=== PATIENT | female | born 1955 | race Caucasian/White ===

== ENCOUNTER 2020-08-03 00:18 | Outpatient (CLI) | payer OTHER, SELFPAY ==
[2020-08-03 17:34] LABS: SARS-CoV-2 RNA PCR Negative
== END 2020-08-03 00:19 | disposition home or self-care (01) ==
LOC: ANHCOVIDDT 00:18
PROVIDERS: PCP Family Medicine; Visit Provider Plastic Surgery
DX: Z01.812 Encounter for preprocedural laboratory examination (principal); Z20.822 Contact with and (suspected) exposure to COVID-19
CPT/HCPCS: C9803; U0003; U0005

== ENCOUNTER 2020-08-04 13:05 | Outpatient (CLI) | payer OTHER, SELFPAY ==
--- NOTE | 2020-08-04 13:09 | ECG_ITS ---
Measurements Intervals [place] Rate: 65 P: 70 [place]: 181 QRS: -26 QRSD: 87 T: 9 QT: 418 QTc: 435 Interpretive Statements SINUS RHYTHM LOW QRS VOLTAGE IN PRECORDIAL LEADS VOLTAGE CRITERIA FOR LVH BORDERLINE T WAVE ABNORMALITY- INFERIOR LEADS BORDERLINE ECG Electronically Signed On 08-04-2020 13:37:41 FURNITURE MAKER by Cem Albert D.O.
== END 2020-08-04 13:06 | disposition home or self-care (01) ==
LOC: ANHSURGERY 13:09
PROVIDERS: PCP Family Medicine; Visit Provider Plastic Surgery
DX: Z01.818 Encounter for other preprocedural examination (principal); I10 Essential (primary) hypertension; R94.31 Abnormal electrocardiogram [ECG] [EKG]
CPT/HCPCS: 93005

== ENCOUNTER 2020-08-06 00:30 | Day surgery (SDC) | payer OTHER, SELFPAY ==
[2020-08-03 12:58] VITALS: BMI 35.6
--- NOTE | 2020-08-06 07:07 | WPDHPUPDATE1 ---
History and Physical Update Update Date/Time: 08/06/20 07:07 History and Physical has been reviewed, including an updated exam of the patient. There are NO changes in the patient's condition. Risks, benefits, and alternatives have been discussed and questions answered. Patient agrees to proceed with procedure.
[2020-08-06 08:00] VITALS: BP 152/91; PULSE 55; RESP 20; TEMP 36.7; O2SAT 100
[2020-08-06] MEDS: LACTATED RINGERS 1,000 ML 30 ML IV CONT ×2 (09:25→12:31)
[2020-08-06 09:36] LABS: Glucose Point of Care 99 (65-105)
--- NOTE | 2020-08-06 09:43 | WPDANESEPPF ---
Anes - Initial Pre Proc Eval Procedure: Operation Date: 08/06/20 10:00 Proposed Procedures p Excision Of Basal Cell Carcinoma From Right Nasal Sidewall, With Frozen Section And Possible Full Thickness Skin Graft Or Local Tissue Transfer - Miki Echeverria MD Date/Time: 08/06/20 09:43 Surgeon: Miki Echeverria MD Pre Op Diagnosis: Basal Cell Carcinoma Right Nasal Sidewall Patient Data Age: 64 Gender: F Height: 5 ft 4 in Weight: 98.2 kg Last Vital Signs Temp 98.1 F 08/06/20 08:00 Pulse 55 L 08/06/20 08:00 Resp 20 08/06/20 08:00 BP 152/91 H 08/06/20 08:00 Pulse Ox 100 08/06/20 08:00 Allergies Allergy/AdvReac Type Severity Reaction Status Date / Time No Known Allergies Allergy NONE Verified 08/06/20 09:18 Home Medications Medication Instructions Recorded Confirmed Type fluticasone propionate 50 See Rx Instructions .ROUTE 03/10/20 08/03/20 Rx mcg/actuation nasal .COMPLEX #16 ml spray,suspension amlodipine 10 mg tablet 10 mg PO DAILY #90 tablet 04/07/20 08/06/20 Rx metformin 500 mg tablet 500 mg PO BID #180 tablet 04/07/20 08/06/20 Rx metoprolol tartrate 50 mg tablet 25 mg PO BID tablet 07/06/20 08/06/20 History triamterene 37.5 1 tablet PO DAILY #135 tablet 07/06/20 08/06/20 Rx mg-hydrochlorothiazide 25 mg tablet atorvastatin 10 mg tablet 10 mg PO DAILY #90 tablet 07/08/20 08/06/20 Rx alprazolam 0.25 mg tablet 0.25 mg PO BID PRN #60 tablet 07/24/20 08/06/20 Rx ascorbic acid (vitamin C) 500 mg PO DAILY 08/03/20 08/06/20 History biotin 10 mg PO DAILY 08/03/20 08/06/20 History cholecalciferol (vitamin D3) 25 mcg PO DAILY 08/03/20 08/06/20 History cyanocobalamin (vitamin B-12) 1,000 mcg PO DAILY 08/03/20 08/06/20 History ketotifen fumarate [Eye Itch See Rx Instructions .ROUTE 08/03/20 08/06/20 History Relief] .COMPLEX PRN multivitamin-iron (hematinic) 1 tablet PO DAILY 08/03/20 08/06/20 History [Complete Vitamin] turmeric 400 mg PO DAILY 08/03/20 08/06/20 History Laboratory Tests 08/06/20 09:33 POC Capillary Glucose 99 mg/dl mg/dl (65-105) Patient hx anesthesia problems: none Family hx anesthesia problems: none PMF Past Medical History Medical History Dyslipidemia Generalized anxiety disorder Hypertension Prediabetes Sleep apnea Surgical History Surgical History History of foot surgery 2010 - Right foot surgery for excision of neuroma. History of vaginal delivery 1985, 1994 Family History Family History Father Patient's father is Acute myocardial infarction, Onset Age: 53 Asthma, Onset Age: 53 Grandparent Diabetes mellitus Other Hypertension Social History Social History Smoking status: Never smoker Second hand tobacco smoke exposure: No Smoking end date: 07/03/75 Alcohol intake: never Substance use: never Substance use type: does not use Living arrangements: with family Spiritual care concerns: No Anes - Eval Final PreProcedure Day of Procedure 08/06/20 09:43 Patient weight: obese Heart: regular rate and rhythm Lungs: clear to auscultation Airway: Mallampati scale class II Neurological: alert and oriented Last oral intake: >/= 8 hours ASA classification: III Emergent: no Anesthetic plan: proceed Anesthesia type and monitoring: general GIVS and standard monitoring Informed Consent: The patient's anesthetic plan and its attendant risks and benefits were discussed with the patient/family/POA. Questions were solicited and answers provided to the satisfaction of the patient/family/POA.
--- NOTE | 2020-08-06 10:07 | SUR.PREOP ---
0920-PT AWARE SURGEON DELAYS SELF ~30-45 . SHE STATES SHE WILL MAKE STEP DAD AWARE.
[2020-08-06] MEDS: LIDO 1%/EPINEPHRINE 1:100,000 50 ML VIAL INFILTRATE ×2 (10:55→12:07)
[2020-08-06] MEDS: BACITRACIN OINTMENT 15 GM TUBE 1 APPLIC TOPICAL (12:21)
--- NOTE | 2020-08-06 12:22 | SUR.OPER ---
Ebl=5ml
[2020-08-06 12:31] VITALS: BP 125/71; PULSE 57; RESP 14; O2SAT 100
--- NOTE | 2020-08-06 12:36 | P.OP_ITS ---
Procedure Note - Detailed Date of procedure: 08/06/20 Pre-op diagnosis: Basal Cell Carcinoma Right Nasal Sidewall Post-op diagnosis: same Procedure performed: 1.5 cm excision of BCC of right nasal sidewall with FS and LTT 2 sq cm Description of procedure: The tumor site on patient's right nasal sidewall was marked in the holding area. She was taken to the operating room and placed supine on the operating table. Time-out was held and confirmed. She was given IV sedation. The face was prepped and draped in usual fashion. The site was carefully marked for excision. The site was infiltrated with 1% lidocaine with epinephrine. The proposed the tumor margins were excised with 15 blade and the specimen taken off in the subcutaneous tissue a suture marking the superior 12 o'clock position. The pathologist revealed that the entire tumor had been removed. The reconstruction involved local tissue transfer as a V to Y flap from the nasal labial fold. This was incised and elevated to the nasal dorsum with careful preservation of the satisfactory random vascular pedicle. This was inset with 5 0 Vicryl and 6 0 nylon tolerated well. Anesthesia: MAC Surgeon: Miki Echeverria MD Accounts Adjustable Clerk: Babar Estimated blood loss (mL): 5 Drains: No Packing: No Pathology: yes Complications: No immediate complications Condition: stable Disposition: same day
[2020-08-06 12:37] LABS: Glucose Point of Care 104 (65-105)
[2020-08-06 13:00] VITALS: BP 149/76; PULSE 54; RESP 14
[2020-08-06 13:30] VITALS: BP 134/72; PULSE 51; RESP 20
[2020-08-06 14:00] VITALS: BP 141/70; PULSE 54; RESP 20
== END 2020-08-06 14:10 | disposition home or self-care (01) ==
PROVIDERS: PCP Family Medicine; Visit Provider Plastic Surgery
PROC: (CPT 14060; principal; 2020-08-06 10:00)
DX: C44.311 Basal cell carcinoma of skin of nose (principal); I10 Essential (primary) hypertension; E78.5 Hyperlipidemia, unspecified; R73.03 Prediabetes; G47.30 Sleep apnea, unspecified; F41.1 Generalized anxiety disorder; Z79.84 Long term (current) use of oral hypoglycemic drugs; E66.9 Obesity, unspecified; Z68.37 Body mass index [BMI] 37.0-37.9, adult
CPT/HCPCS: 14060; 82948; 88305; 88331; A9270; J2405; J2704; J7120

== ENCOUNTER 2022-11-18 11:17 | Outpatient (CLI) | payer BC, MEDICARE, SELFPAY ==
[2022-11-18 12:07] LABS: Kit Draw Collected
== END 2022-11-18 11:18 | disposition home or self-care (01) ==
LOC: ANHGOSHLAB 11:20
PROVIDERS: PCP Family Medicine; Visit Provider Nurse Practitioner Family
DX: R73.03 Prediabetes (principal); Z13.220 Encounter for screening for lipoid disorders; Z13.29 Encounter for screening for other suspected endocrine disorder; I10 Essential (primary) hypertension; Z13.21 Encounter for screening for nutritional disorder
CPT/HCPCS: 36415

== ENCOUNTER 2023-03-17 08:28 | Emergency (ER) | payer BC, MEDICARE, SELFPAY ==
[2023-03-17 08:41] VITALS: BP 132/84; PULSE 80; RESP 16; TEMP 36.4; O2SAT 100
--- NOTE | 2023-03-17 09:04 | ECG_ITS ---
Measurements Intervals [place] Rate: 91 P: [place]: 0 QRS: -19 QRSD: 89 T: 13 QT: 384 QTc: 473 Interpretive Statements ATRIAL FIBRILLATION ABNORMAL ECG COMPARED TO ECG 08/04/2020 13:43:10 ATRIAL FIBRILLATION NOW PRESENT Electronically Signed On 03-17-2023 11:07:31 CDT by Cem Albert D.O.
--- NOTE | 2023-03-17 09:21 | ED.URI ---
HPI - URI/Sore Throat General Chief Complaint: Upper Respiratory Infection Stated Complaint: throat/feels icky Time Seen by Provider: 03/17/23 08:42 Source: patient Mode of arrival: ambulatory Limitations: no limitations History of Present Illness HPI Narrative: Elizabeth is a 67-year-old female patient presenting to the clinic today with complaints of a dry scratchy sore throat, fever blister, and chest tightness that started yesterday. She denies any SOB, chest pain, or cough. No fever or chills. History of high cholesterol, hypertension, and diabetes MD elicited complaint: sore throat Related Data Home Medications Medication Instructions Recorded Confirmed ascorbic acid (vitamin C) 500 mg 500 mg PO DAILY 08/03/20 03/17/23 tablet biotin 10 mg tablet 10 mg PO DAILY 08/03/20 03/17/23 cholecalciferol (vitamin D3) 25 25 mcg PO DAILY 08/03/20 03/17/23 mcg (1,000 unit) tablet cyanocobalamin (vitamin B-12) 1,000 mcg PO DAILY 08/03/20 03/17/23 1,000 mcg tablet multivitamin-iron (hematinic) 1 tablet PO DAILY 08/03/20 03/17/23 turmeric 400 mg capsule 400 mg PO DAILY 08/03/20 03/17/23 Allergies Allergy/AdvReac Type Severity Reaction Status Date / Time No Known Allergies Allergy NONE Verified 03/17/23 08:48 Review of Systems Review of Systems: Pertinent positives per HPI. Patient denies any fever, chills, rash, headache, visual changes, dizziness, cough, shortness of breath, chest pain, palpitations, nausea, vomiting, diarrhea, constipation, abdominal pain, or any urinary issues. [facility] Past Medical History Medical History (Updated 03/17/23 @ 12:05 by Stone Young MD) Chest tightness Dependence on other enabling machines and devices Dyslipidemia Encounter for immunization Facial skin lesion General medical examination Generalized anxiety disorder Hypertension Impaired fasting glucose Obesity, unspecified Prediabetes Screening for diabetes mellitus Screening mammogram, encounter for Sleep apnea Unspecified mastoiditis, left ear Surgical History Surgical History History of foot surgery 2010 - Right foot surgery for excision of neuroma. History of vaginal delivery 1985, 1994 Family History Family History Father Patient's father is Acute myocardial infarction, Onset Age: 53 Asthma, Onset Age: 53 Grandparent Diabetes mellitus Mother , 10/24/22 Acute myocardial infarction Other Hypertension Social History Social History Smoking status: Never smoker Second hand tobacco smoke exposure: No Smoking end date: 07/03/75 Alcohol intake: never Substance use: never Substance use type: does not use Lack of Transportation: No Lack of Food: Never True Current Housing: I Have Housing Concerned About Future Housing: No Difficulty Paying Gas/Electric Bills: No Difficulty Paying for Meds: No Currently Unemployed: No Education: High School Diploma/GED Living arrangements: with family Spiritual care concerns: No Comments At the time of my signature, I reviewed and agree with the nursing past medical, surgical, social, and family history. There is no relevant family history pertinent to the patient complaint. Exam Narrative: General: Well-developed, well nourished, in no apparent distress Head: Normocephalic, atraumatic Eyes: Pupils equally round and reactive to light bilaterally, EOM intact, sclera and conjunctive clear, no discharge, lids normal Ears: TMs intact and clear, ear canals clear, no drainage, grossly hearing normal. Nose: Nares patent, clear discharge, no inflammation, no sinus tenderness. Mouth: Oral pharynx mildly red without lesions or masses, good dentition, MMM. Neck: Supple, trachea midline, no enlargement of anterior or po
--- NOTE | 2023-03-17 09:33 | PC.NURSE ---
PT ORIGINALLY DECLINED TRANSFER TO THE ER, REPORTED SHE WAS GOING TO FOLLOW UP WITH PMD TODAY. PT NOW AGREES TO TRANSFER TO [place] [facility]. TECHNICAL CUSTOMER SUPPORT SPECIALIST IS NOTIFIED AND AWARE. NAD NOTED. PT DENIES ANY CHEST PAIN, DOES REPORT TIGHTNESS IS PRESENT. WILL CONTINUE TO MONITOR.
== END 2023-03-17 09:45 | disposition short-term general hospital (02) ==
PROVIDERS: Emergency Provider Nurse Practitioner Family; PCP Family Medicine
DX: J02.9 Acute pharyngitis, unspecified (principal); R07.9 Chest pain, unspecified; I48.91 Unspecified atrial fibrillation; E78.5 Hyperlipidemia, unspecified; I10 Essential (primary) hypertension; Z79.899 Other long term (current) drug therapy; Z20.822 Contact with and (suspected) exposure to COVID-19
CPT/HCPCS: 87081; 87426; 87880; 93005; 99213; C9803; G0463

== ENCOUNTER 2023-03-17 10:40 | Emergency (ER) | payer BC, MEDICARE, SELFPAY ==
--- NOTE | ~2023-03-17 | XR_ITS ---
Clinical Indication: Atrial fibrillation PA and lateral views of the chest: Comparison: 05/22/2012 Findings: The lungs are clear, without evidence of focal consolidation or pleural effusion. Cardiome diastinal silhouette is within normal limits. Bones and soft tissues are unremarkable. Impression: Normal chest. Reviewed, dictated and finalized at location . Impression: Normal chest.
[2023-03-17 10:46] VITALS: BP 173/101; PULSE 105; RESP 18; TEMP 36.8; O2SAT 100
[2023-03-17 11:08] VITALS: BP 154/95; PULSE 87; RESP 13; O2SAT 99
[2023-03-17 11:28] LABS: Basophils Absolute Auto 0.1 K/mm3 (0.0-0.1); Eosinophils Absolute Auto 0.1 K/mm3 (0-0.3); Eosinophils Percent Auto 1.7 % (0-4.4); Hematocrit 39.9 % (37.0-47.0); Hemoglobin 12.6 g/dL (12.0-15.0); Immature Granulocyte Absolute 0.01 K/mm3 (0.00-0.031); Immature Granulocyte Percent A 0.2 % (0-0.5); Lymphocytes Absolute Auto 2.15 K/mm3 (0.9-3.2); Lymphocytes Percent Auto 37.1 % (18.3-44.2); Mean Corpuscular HGB Conc 31.6 g/dl (32-36); Mean Corpuscular Hemoglobin 26.6 pg (26-34); Mean Corpuscular Volume 84.2 fl (80-100); Mean Platelet Volume 10.8 fl (7.4-10.4); Monocytes Absolute Auto 0.4 K/mm3 (0.1-0.6); Monocytes Percent Auto 6.7 % (2.6-8.5); Neutrophils Absolute Auto 3.1 K/mm3 (1.3-6.7); Neutrophils Percent Auto 53.3 % (45.5-73.1); Platelet Count Result 236 k/mm3 (150-375); Red Blood Count 4.74 M/mm3 (4.2-5.4); White Blood Count 5.8 K/mm3 (4.5-10.0)
[2023-03-17 11:39] LABS: Alanine Aminotransferase 22 U/L (6-35); Albumin Level 4.1 g/dL (3.5-5.1); Alkaline Phosphatase 77 U/L (38-126); Anion Gap 8 mmol/L (8-16); Aspartate Amino Transferase 27 U/L (14-36); Bilirubin,Total 0.6 mg/dL (0.2-1.3); Blood Urea Nitrogen 20 mg/dL (7-17); Calcium 9.1 mg/dL (8.4-10.2); Carbon Dioxide 30 mmol/L (22-30); Chloride 104 mmol/L (98-107); Estimated CRCL calculation 89 ml/min; Estimated Glomerular Filt Rate > 60; Glucose 105 mg/dL (65-110); Magnesium 1.7 mg/dL (1.6-2.3); Partial Thromboplastin Time 31.3 SECONDS (22.3-36.8); Potassium 3.2 mmol/L (3.4-5.0); Prothrombin Time 14.1 Seconds (11.1-14.7); Sodium 142 mmol/L (137-145)
[2023-03-17 11:51] LABS: Troponin I < 0.012 ng/mL (0.000-0.034)
--- NOTE | 2023-03-17 12:04 | ED.ARRPALP ---
HPI - Arrhythmia/Palpitations General Chief Complaint: Arrhythmia/Palpitations Stated Complaint: abnormal EKG Time Seen by Provider: 03/17/23 11:06 History of Present Illness HPI narrative: This is a 67-year-old female, referred from an urgent care for new A-fib. The patient complains sore throat for the past day without known sick contacts. She denies chest pain or palpitations, though has had intermittent lightheadedness for the past few weeks. She has no other complaints at this time Related Data Home Medications Medication Instructions Recorded Confirmed ascorbic acid (vitamin C) 500 mg 500 mg PO DAILY 08/03/20 03/17/23 tablet biotin 10 mg tablet 10 mg PO DAILY 08/03/20 03/17/23 cholecalciferol (vitamin D3) 25 25 mcg PO DAILY 08/03/20 03/17/23 mcg (1,000 unit) tablet cyanocobalamin (vitamin B-12) 1,000 mcg PO DAILY 08/03/20 03/17/23 1,000 mcg tablet multivitamin-iron (hematinic) 1 tablet PO DAILY 08/03/20 03/17/23 turmeric 400 mg capsule 400 mg PO DAILY 08/03/20 03/17/23 Allergies Allergy/AdvReac Type Severity Reaction Status Date / Time No Known Allergies Allergy NONE Verified 03/17/23 08:48 Review of Systems Review of Systems: CONSTITUTIONAL: Denies fever, chills, or sweats. ENT: Sore throat denies rhinorrhea, congestion or otalgia. CARDIOVASCULAR: Denies chest pain, palpitations, or edema. RESPIRATORY: Denies cough or dyspnea. GASTROINTESTINAL: Denies abdominal pain, nausea, vomiting, or diarrhea. GENITOURINARY: Denies dysuria or hematuria. SKIN: Denies rash or itching. MUSCULOSKELETAL: Denies back pain, joint pain, or myalgia. NEUROLOGIC: Intermittent lightheadedness denies headache, numbness, dizziness, or weakness. PSYCHIATRIC: Denies anxiety or depression. REPLACED BY [facility] Past Medical History Medical History Chest tightness Dependence on other enabling machines and devices Dyslipidemia Encounter for immunization Facial skin lesion General medical examination Generalized anxiety disorder Hypertension Impaired fasting glucose Obesity, unspecified Prediabetes Screening for diabetes mellitus Screening mammogram, encounter for Sleep apnea Unspecified mastoiditis, left ear Surgical History Surgical History History of foot surgery 2011 - Right foot surgery for excision of neuroma. History of vaginal delivery 1985, 1994 Family History Family History Father Patient's father is Acute myocardial infarction, Onset Age: 53 Asthma, Onset Age: 53 Grandparent Diabetes mellitus Mother , 10/24/22 Acute myocardial infarction Other Hypertension Social History Social History Smoking status: Never smoker Second hand tobacco smoke exposure: No Smoking end date: 07/03/75 Alcohol intake: never Substance use: never Substance use type: does not use Lack of Transportation: No Lack of Food: Never True Current Housing: I Have Housing Concerned About Future Housing: No Difficulty Paying Gas/Electric Bills: No Difficulty Paying for Meds: No Currently Unemployed: No Education: High School Diploma/GED Living arrangements: with family Spiritual care concerns: No Exam Narrative: GENERAL: Well-developed, well-nourished, and in no acute distress. HEAD: Normocephalic, atraumatic. EYES: PERRLA and EOMI. ENT: Nares clear, no rhinorrhea or epistaxis. Mucous membranes moist. Oropharynx without tonsillar hypertrophy exudate or other lesions. NECK: Supple. No JVD CHEST: Clear to auscultation. No respiratory distress. No wheezes rales or rhonchi HEART: Irregularly irregular. No murmur heard. Normal peripheral pulses. ABDOMEN: Soft, nontender, nondistended, normal active bowel sounds. EXTREMITIES: Normal
[2023-03-17 12:15] VITALS: BP 141/92; PULSE 88; RESP 17; O2SAT 97
== END 2023-03-17 12:16 | disposition home or self-care (01) ==
PROVIDERS: Emergency Provider Preventive Medicine Aerospace Medicine; PCP Family Medicine
DX: I48.91 Unspecified atrial fibrillation (principal); J02.8 Acute pharyngitis due to other specified organisms; E78.5 Hyperlipidemia, unspecified; I10 Essential (primary) hypertension; R73.03 Prediabetes; G47.30 Sleep apnea, unspecified; F41.1 Generalized anxiety disorder; E66.9 Obesity, unspecified; Z68.41 Body mass index [BMI] 40.0-44.9, adult; Z79.84 Long term (current) use of oral hypoglycemic drugs
CPT/HCPCS: 36415; 71046; 80053; 83735; 84484; 85025; 85610; 85730; 87081; 87426; 87880; 93005; 99284; C9803

== ENCOUNTER 2023-08-09 14:25 | Outpatient (CLI) | payer BC, MEDICARE, SELFPAY ==
[2023-08-09 15:38] LABS: Basophils Absolute Auto 0.1 K/mm3 (0.0-0.1); Eosinophils Absolute Auto 0.2 K/mm3 (0-0.3); Eosinophils Percent Auto 2.2 % (0-4.4); Hematocrit 38.5 % (37.0-47.0); Hemoglobin 11.7 g/dL (12.0-15.0); Immature Granulocyte Absolute 0.05 K/mm3 (0.00-0.031); Immature Granulocyte Percent A 0.5 % (0-0.5); Lymphocytes Absolute Auto 2.62 K/mm3 (0.9-3.2); Lymphocytes Percent Auto 26.7 % (18.3-44.2); Mean Corpuscular HGB Conc 30.4 g/dl (32-36); Mean Corpuscular Hemoglobin 25.2 pg (26-34); Monocytes Absolute Auto 0.8 K/mm3 (0.1-0.6); Monocytes Percent Auto 8.6 % (2.6-8.5); Platelet Count Result 309 k/mm3 (150-375); Red Blood Count 4.64 M/mm3 (4.2-5.4); Red Cell Distribution Width 14.1 % (11.5-14.5); White Blood Count 9.8 K/mm3 (4.5-10.0)
[2023-08-09 19:09] LABS: Alanine Aminotransferase 19 U/L (6-35); Albumin Level 4.1 g/dL (3.5-5.1); Alkaline Phosphatase 80 U/L (38-126); Anion Gap 4 mmol/L (8-16); Aspartate Amino Transferase 34 U/L (14-36); Bilirubin,Total 0.5 mg/dL (0.2-1.3); Blood Urea Nitrogen 29 mg/dL (7-17); Calcium 9.7 mg/dL (8.4-10.2); Carbon Dioxide 32 mmol/L (22-30); Chloride 105 mmol/L (98-107); Estimated Glomerular Filt Rate > 60; Glucose 99 mg/dL (65-110); Potassium 4.1 mmol/L (3.4-5.0); Sodium 141 mmol/L (137-145)
== END 2023-08-09 14:26 | disposition home or self-care (01) ==
LOC: ANHGOSHLAB 14:27
PROVIDERS: PCP Family Medicine; Visit Provider Nurse Practitioner Family
DX: K62.5 Hemorrhage of anus and rectum (principal); E87.6 Hypokalemia
CPT/HCPCS: 36415; 80053; 85025

== ENCOUNTER 2023-10-03 12:58 | Emergency (ER) | payer BC, MEDICARE, SELFPAY ==
[2023-10-03 13:08] VITALS: BP 150/85; PULSE 68; RESP 20; TEMP 37.1; O2SAT 97
--- NOTE | 2023-10-03 13:18 | ED.GENADULT ---
HPI - General Adult General Chief complaint: Upper Respiratory Infection Stated complaint: Cough/Headache/Chest Congestion Source: patient, RN notes reviewed and old records reviewed Mode of arrival: ambulatory Limitations: no limitations History of Present Illness HPI narrative: 68-year-old female patient presents to [facility] with complaints of cough, congestion, myalgia, fever, chest tightness this started Monday. Patient taking [id number] medications with no relief. Related Data Home Medications Medication Instructions Recorded Confirmed multivitamin-iron (hematinic) 1 tablet PO DAILY 08/03/20 10/03/23 turmeric 400 mg capsule 400 mg PO DAILY 08/03/20 10/03/23 aspirin 81 mg tablet,delayed 81 mg PO DAILY 08/09/23 10/03/23 release (Adult Low Dose Aspirin) diltiazem HCl 180 mg 180 mg PO DAILY 08/09/23 10/03/23 capsule,extended release 24 hr, controlled isosorbide mononitrate 30 mg 30 mg PO DAILY 08/09/23 10/03/23 tablet,extended release 24 hr amlodipine 10 mg tablet 10 mg PO DAILY 10/03/23 10/03/23 apixaban 5 mg tablet (Eliquis) 5 mg PO BID 10/03/23 10/03/23 dronedarone 400 mg tablet (Multaq) 400 mg PO BID 10/03/23 10/03/23 empagliflozin 10 mg tablet 1 mg PO DAILY 10/03/23 10/03/23 (Jardiance) furosemide 40 mg tablet 40 mg PO DAILY 10/03/23 10/03/23 metoprolol tartrate 25 mg tablet 50 mg PO BID 10/03/23 10/03/23 potassium chloride 20 mEq 20 meq PO DAILY 10/03/23 10/03/23 tablet,extended release(part/cryst) (Klor-Con M) Allergies Allergy/AdvReac Type Severity Reaction Status Date / Time No Known Allergies Allergy NONE Verified 10/03/23 13:11 Review of Systems Constitutional: Constitutional: Reports no additional constitutional complaints, Reports body ache(s), Denies chills, Denies fatigue, Reports fever(s) and Denies headache(s) Eyes: Eyes: Reports no additional eye complaints and Denies blurry vision ENT: Reports system reviewed and no additional complaints, except as documented, Denies vertigo, Denies dizziness, Denies ear discharge, Denies otalgia, Denies facial pain, Denies headache(s), Reports nasal congestion, Denies nasal discharge, Denies sinus pain, Reports sinus pressure and Denies sore throat Cardiovascular: Cardiovascular: Reports no additional cardiovascular complaints, Denies chest pain, Denies chest pain at rest, Denies rapid heart rate and Denies dyspnea Respiratory: Respiratory: Reports no additional respiratory complaints, Reports chest congestion, Reports cough, Denies pain on inspiration, Denies pain with cough and Denies dyspnea Gastrointestinal: Gastrointestinal: Denies abdominal pain, Denies diarrhea, Denies nausea and Denies vomiting Integumentary/Breasts: Skin/Breast: Denies rash Neurologic: Reports system reviewed and no additional complaints, except as documented, Denies vertigo, Denies dizziness and Denies headache(s) Endocrine: Endocrine: Denies fatigue PMFSH Past Medical History Medical History Anemia Anticoagulant long-term use Atrial fibrillation Chest tightness Dependence on other enabling machines and devices Dyslipidemia Encounter for immunization Facial skin lesion General medical examination Generalized anxiety disorder Hematochezia Hypertension Impaired fasting glucose Lower GI bleed Obesity, unspecified Prediabetes Screening for diabetes mellitus Screening mammogram, encounter for Sleep apnea Unspecified mastoiditis, left ear Surgical History Surgical History History of foot surgery 2010 - Right foot surgery for excision of neuroma. History of vaginal delivery 1985, 1994 Family History Family History Father Patient's father is Acute myocardial infarction, Onset Age: 53 Asthma, Onset Age: 53 Grandparent Diabetes mellitus [place]
[2023-10-03 13:26] VITALS: BP 150/85; PULSE 68; RESP 20; TEMP 37.1; O2SAT 97
== END 2023-10-03 13:35 | disposition home or self-care (01) ==
PROVIDERS: Emergency Provider Registered Nurse; PCP Family Medicine
DX: J10.1 Influenza due to other identified influenza virus with other respiratory manifestations (principal); Z20.822 Contact with and (suspected) exposure to COVID-19; I48.91 Unspecified atrial fibrillation; E78.5 Hyperlipidemia, unspecified; I10 Essential (primary) hypertension; E66.9 Obesity, unspecified; Z68.36 Body mass index [BMI] 36.0-36.9, adult; R73.03 Prediabetes; Z79.01 Long term (current) use of anticoagulants; Z79.82 Long term (current) use of aspirin; Z79.84 Long term (current) use of oral hypoglycemic drugs
CPT/HCPCS: 87426; 87804; 99213; G0463

== ENCOUNTER 2023-11-22 09:46 | Outpatient (CLI) | payer BC, MEDICARE, SELFPAY ==
[2023-11-22 10:26] LABS: Basophils Absolute Auto 0.1 K/mm3 (0.0-0.1); Basophils Percent Auto 1.3 % (0.2-1.2); Eosinophils Absolute Auto 0.2 K/mm3 (0-0.3); Eosinophils Percent Auto 2.8 % (0-4.4); Hematocrit 35.2 % (37.0-47.0); Hemoglobin 9.7 g/dL (12.0-15.0); Immature Granulocyte Absolute 0.01 K/mm3 (0.00-0.031); Immature Granulocyte Percent A 0.2 % (0-0.5); Lymphocytes Absolute Auto 1.33 K/mm3 (0.9-3.2); Lymphocytes Percent Auto 21.8 % (18.3-44.2); Mean Corpuscular HGB Conc 27.6 g/dl (32-36); Mean Corpuscular Hemoglobin 19.1 pg (26-34); Mean Corpuscular Volume 69.2 fl (80-100); Mean Platelet Volume 9.7 fl (7.4-10.4); Monocytes Absolute Auto 1.1 K/mm3 (0.1-0.6); Monocytes Percent Auto 17.5 % (2.6-8.5); Neutrophils Absolute Auto 3.5 K/mm3 (1.3-6.7); Neutrophils Percent Auto 56.4 % (45.5-73.1); Platelet Count Result 420 k/mm3 (150-375); Red Blood Count 5.09 M/mm3 (4.2-5.4); Red Cell Distribution Width 19.7 % (11.5-14.5); White Blood Count 6.1 K/mm3 (4.5-10.0)
[2023-11-22 10:45] LABS: Alanine Aminotransferase 36 U/L (6-35); Alkaline Phosphatase 81 U/L (38-126); Anion Gap 5 mmol/L (4-12); Aspartate Amino Transferase 37 U/L (14-36); Bilirubin,Total 0.6 mg/dL (0.2-1.3); Blood Urea Nitrogen 15 mg/dL (7-17); Calcium 8.8 mg/dL (8.4-10.2); Carbon Dioxide 30 mmol/L (22-30); Chloride 106 mmol/L (98-107); Estimated Glomerular Filt Rate > 60; Glucose 90 mg/dL (65-110); Potassium 3.7 mmol/L (3.4-5.0); Sodium 141 mmol/L (137-145)
[2023-11-22 10:52] LABS: NT Pro B Type Natriuretic Pept 2850 pg/mL (19.9-100)
[2023-11-22 11:14] LABS: Hypochromasia 1+; Platelet Estimate Increased (Adequate)
[2023-11-22 11:15] LABS: Ovalocytes 1+; Schistocytes Rare
[2023-11-24 05:58] LABS: TSH QUEST 2.49 mIU/L (0.40-4.50)
== END 2023-11-22 09:47 | disposition home or self-care (01) ==
LOC: ANHLAB 09:49
PROVIDERS: PCP Family Medicine; Visit Provider Internal Medicine Cardiovascular Disease
DX: I50.32 Chronic diastolic (congestive) heart failure (principal)
CPT/HCPCS: 36415; 80053; 83880; 84481; 85025; 86376

== ENCOUNTER 2024-01-25 15:03 | Outpatient (CLI) | payer BC, MEDICARE, SELFPAY ==
[2024-01-25 15:21] LABS: Basophils Absolute Auto 0.1 K/mm3 (0.0-0.1); Basophils Percent Auto 0.7 % (0.2-1.2); Eosinophils Absolute Auto 0.1 K/mm3 (0-0.3); Eosinophils Percent Auto 1.3 % (0-4.4); Hematocrit 33.8 % (37.0-47.0); Hemoglobin 9.3 g/dL (12.0-15.0); Immature Granulocyte Absolute 0.03 K/mm3 (0.00-0.031); Immature Granulocyte Percent A 0.3 % (0-0.5); Lymphocytes Absolute Auto 2.71 K/mm3 (0.9-3.2); Lymphocytes Percent Auto 28.5 % (18.3-44.2); Mean Corpuscular HGB Conc 27.5 g/dl (32-36); Mean Corpuscular Hemoglobin 17.4 pg (26-34); Mean Corpuscular Volume 63.4 fl (80-100); Mean Platelet Volume 8.9 fl (7.4-10.4); Monocytes Absolute Auto 0.7 K/mm3 (0.1-0.6); Monocytes Percent Auto 7.8 % (2.6-8.5); Neutrophils Absolute Auto 5.8 K/mm3 (1.3-6.7); Neutrophils Percent Auto 61.4 % (45.5-73.1); Platelet Count Result 410 k/mm3 (150-375); Red Blood Count 5.33 M/mm3 (4.2-5.4); Red Cell Distribution Width 20.4 % (11.5-14.5); White Blood Count 9.5 K/mm3 (4.5-10.0)
[2024-01-25 15:26] LABS: Anisocytosis 1+; Hypochromasia 1+; Microcytosis 1+ (NORMAL); Platelet Estimate Increased (Adequate); Schistocytes None Seen
[2024-01-25 15:28] LABS: Crenated RBC 1+; Ovalocytes 1+; Poikilocytosis 2+
[2024-01-25 16:45] LABS: Iron 26 ug/dL (37-170)
[2024-01-25 16:54] LABS: Alanine Aminotransferase 32 U/L (6-35); Albumin Level 4.4 g/dL (3.5-5.1); Alkaline Phosphatase 90 U/L (38-126); Anion Gap 10 mmol/L (4-12); Aspartate Amino Transferase 36 U/L (14-36); Bilirubin,Total 0.6 mg/dL (0.2-1.3); Blood Urea Nitrogen 22 mg/dL (7-17); Carbon Dioxide 30 mmol/L (22-30); Chloride 99 mmol/L (98-107); Estimated Glomerular Filt Rate > 60; Glucose 93 mg/dL (65-110); Lactate Dehydrogenase 262 U/L (120-246); Potassium 3.4 mmol/L (3.4-5.0); Sodium 139 mmol/L (137-145)
[2024-01-25 17:04] LABS: Percent Iron Saturation 5 % (20-50)
[2024-01-25 17:25] LABS: Ferritin 6.74 ng/mL (11.1-264)
[2024-01-25 18:08] LABS: Folic Acid > 20.0 ng/mL (2.76->20); Vitamin B12 > 1000.0 pg/mL (239-931)
[2024-01-29 09:43] LABS: Methylmalonic Acid 171 nmol/L (69-390)
[2024-02-01 13:39] LABS: Soluble Transferrin Receptor 5.38 mg/L (0.76-1.76)
== END 2024-01-25 15:04 | disposition home or self-care (01) ==
LOC: ANHLAB 15:06
PROVIDERS: Nurse Practitioner Family; PCP Family Medicine; Visit Provider Internal Medicine Hematology & Oncology
DX: D50.9 Iron deficiency anemia, unspecified (principal)
CPT/HCPCS: 36415; 80053; 82607; 82728; 82746; 83540; 83550; 83615; 83921; 84238; 85025